=== PATIENT | male | born 1940 | race Caucasian/White ===

== ENCOUNTER → 2017-01-21 | Outpatient (CLI) | payer OTHER ==
[~2017-01-21] MED LIST: ACIPHEX 20 MG T20 MG PO; ACTOS 30 MG TAB30 MG PO; ADULT LOW DOSE81 MG PO; ADVAIR 250-501 EACH IH; ALLOPURINOL 30300 M1 PO; AMARYL2 MG PO; AMBIEN 5 MG TABL5 MG; AMOXICILLIN 50500 MG PO; B-122500 MCG PO; BACTRIM DS TAB1 EACH PO; CARVEDILOL25 MG PO; CINNAMON ALPHA1 EACH PO; CINNAMON PO; COREG PO; COUMADIN 2 MG TA2 M1; COUMADIN 2 MG TA2 M1 PO; COUMADIN 2.5MG2.5 M1 PO; COUMADIN 4 MG TA4 M1 PO; COZAAR 25 MG TA25 M1 PO; COZAAR 50 MG TA50 M1 PO; CRESTOR10 MG PO; EFFEXOR XR75 MG PO; ELAVIL PO; FENOFIBRATE160 MG PO; GABAPENTIN100 MG PO; IBUPROFEN 800800 M1 PO; ICY HOT CREAM35.4 GM; IMDUR 60 MG TAB60 M1 PO; JANUVIA50 MG PO; K-DUR 20 MEQ T20 MEQ PO; KEFLEX500 MG PO; LANTUS SOL100 UNIT/1 SQ; LANTUS SUBQ; LANTUSSOLASTAR SUBQ; LASIX 40 MG TAB40 MG PO; LEVEMIR SUBQ; LEVOXYL100 MCG PO; LEVOXYL75 MCG PO; LIPITOR40 MG PO; LOVAZA1000 MG PO; LYRICA 75 MG CA75 MG PO; MOBIC15 MG PO; MULTIVITAMINS PO; NEUROTIN PO; NEXIUM40 MG PO; NIASPAN ER 101000 M1 PO; NOVOLOG 70-30; NOVOLOG MI100 UNIT/2 SQ; NOVOLOG MI100 UNIT/2 SUBQ; ODORLESS GARLI500 MG PO; OMEPRAZOLE40 MG PO; OS-CAL ULTRA T1 EACH PO; PACERONE 200 M200 M1 PO; PREDNISONE 5 MG5 M1 PO; PROVENTIL HFA6.7 G1 INH; SPIRIVA INH; TRADJENTA5 MG PO; TRICOR PO; TRICOR145 MG PO; VITAMIN B-12100 MC1 PO; VITAMIN D31000 UNI2 PO
[2017-01-21 09:59] LABS: CALCIUM 9.3 mg/dL (8.5-10.1); CREATININE 2.4 mg/dL (0.7-1.3); POTASSIUM 4.4 mmol/L (3.5-5.1)
[2017-01-21 10:04] LABS: ALBUMIN 2.9 g/dL (3.4-5.0); TOTAL BILIRUBIN 0.5 mg/dL (<0.1-1.0); TOTAL PROTEIN 6.6 g/dL (6.4-8.2)
== END ==
LOC: RAD 09:18
DX: N18.9 Chronic kidney disease, unspecified (principal); E03.9 Hypothyroidism, unspecified

== ENCOUNTER → 2017-07-08 | Outpatient (CLI) | payer OTHER | LOC: PET 02:22 | DX: R91.1 Solitary pulmonary nodule (principal); E11.9 Type 2 diabetes mellitus without complications; Z79.4 Long term (current) use of insulin ==

== ENCOUNTER 2017-08-06 08:53 | Inpatient (IN) | payer OTHER ==
[~2017-08-06] VITALS: Ht 185.4 cm; Wt 156.4 kg
--- NOTE | ~2017-08-06 | EKG ---
[address] [address] ELECTROCARDIOGRAM REPORT Name: CHITRA WASSERMAN Room #: 209-P ADM IN M.R.#: [id number] Admission: 08/06/17 Attend Phys: Estelita Newman Discharge: Date of : 42 Report #: [id number] THIS REPORT FOR: //name// [facility] Test Date: 2017-08-08 Test Time: 06:47:20 Pat Name: CHITRA WASSERMAN Department: Room: 209 P Gender: M Vaccinator: LUCIE : 1940 Requested By: Emre Pappas Order Number: [id number] MD: Adalberto Swartz Measurements Intervals [place] Rate: 111 P: 83 [place]: 173 QRS: -74 QRSD: 131 T: 254 QT: 360 QTc: 489 Interpretive Statements Atrial flutter. Nonspecific T abnormalities, lateral leads Electronically Signed On 08-08-2017 15:08:12 [employer]LES[employer] TALEO MANAGER by Adalberto Swartz [email or web address] <ELECTRONICALLY SIGNED> By: Adalberto Swartz MD 08/08/17 1508 0647 0647 Adalberto Swartz MD /JUSTINO
--- NOTE | ~2017-08-06 | EKG ---
[address] [address] ELECTROCARDIOGRAM REPORT Name: CHITRA WASSERMAN Room #: 209-P ADM IN M.R.#: [id number] Admission: 08/06/17 Attend Phys: Estelita Newman Discharge: Date of : 42 Report #: [id number] THIS REPORT FOR: //name// [facility] Test Date: 2017-08-08 Test Time: 09:08:50 Pat Name: CHITRA WASSERMAN Department: Room: 209 P Gender: M Component Engineer: LUCIE : 1940 Requested By: Emre Pappas Order Number: [id number] MD: Adalberto Swartz Measurements Intervals [place] Rate: 72 P: 58 [place]: 170 QRS: -50 QRSD: 123 T: -33 QT: 456 QTc: 500 Interpretive Statements Sinus rhythm Probable left atrial enlargement Compared to ECG 08/07/2017 08:43:43 Electronically Signed On 08-08-2017 15:13:04 LEAN LEADER by Adalberto Swartz [email or web address] <ELECTRONICALLY SIGNED> By: Adalberto Swartz MD 08/08/17 1513 7 7 Adalberto Swartz MD /JUSTINO
--- NOTE | ~2017-08-06 | EKG ---
[place] [address] [facility] [place] [address] ELECTROCARDIOGRAM REPORT Name: CHITRA WASSERMAN Room #: 209-P ADM IN M.R.#: [id number] Admission: 08/06/17 Attend Phys: Estelita Newman Discharge: Date of : 42 Report #: [id number] THIS REPORT FOR: //name// [facility] ED Test Date: 2017-08-06 Test Time: 09:23:07 Pat Name: CHITRA WASSERMAN Department: Room: 209 Gender: M Uniform Attendant: BERNIE : 1940 Requested By: Zahra Mortensen Order Number: [id number] MD: Agustin Franz Measurements Intervals [place] Rate: 72 P: 70 [place]: 157 QRS: -57 QRSD: 125 T: -74 QT: 488 QTc: 535 Interpretive Statements Sinus rhythm Poor R-wave progression Nonspecific IVCD with LAD Nonspecific T abnormalities, diffuse leads Compared to ECG 05/26/2016 07:32:58 No significant change Electronically Signed On 08-06-2017 11:49:54 CDT by Agustin Franz [email or web address] <ELECTRONICALLY SIGNED> By: Agustin Franz MD 08/06/17 1149 2 2 Agustin Franz MD /EPI
--- NOTE | ~2017-08-06 | EKG ---
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 Supervisor: JACKSON : 1940 Requested By: Emre Pappas Order Number: [id number] MD: Sarkis Rodrigez Measurements Intervals [place] Rate: 103 P: [place]: QRS: -62 QRSD: 130 T: 80 QT: 454 QTc: 595 Interpretive Statements Atrial flutter with predominant 2:1 AV block Nonspecific IVCD with LAD Incomplete left bundle-branch block Compared to ECG 08/06/2017 09:23:07 2:1 AV block now present Sinus rhythm no longer present Electronically Signed On 08-07-2017 14:36:28 NEEDLE LOOM OPERATOR by Sarkis Rodrigez [email or web address] <ELECTRONICALLY SIGNED> By: Sarkis Rodrigez MD, [facility] 08/07/17 1436 0843 0843 Sarkis Rodrigez MD, [facility] /EPI
--- NOTE | ~2017-08-06 | EKG ---
[address] [place] [address] ELECTROCARDIOGRAM REPORT Name: CHITRA WASSERMAN Room #: 209-P ADM IN M.R.#: [id number] Admission: 08/06/17 Attend Phys: Estelita Newman Discharge: Date of : 42 Report #: [id number] THIS REPORT FOR: //name// [facility] Test Date: 2017-08-09 Test Time: 06:20:07 Pat Name: CHITRA WASSERMAN Department: Room: 209 P Gender: M General Lithographic Worker: LUCIE : 1940 Requested By: Emre Pappas Order Number: [id number] MD: Sarkis Rodrigez Measurements Intervals [place] Rate: 112 P: 147 [place]: 147 QRS: -71 QRSD: 127 T: 105 QT: 350 QTc: 478 Interpretive Statements Atrial flutter with 2-1 AV conduction RBBB and LAFB Probable anteroseptal infarct, old Nonspecific T abnormalities, lateral leads Compared to ECG 08/08/2017 09:08:50 Left anterior fascicular block now present Right bundle-branch block now present atrial flutter has replaced sinus rhythm Electronically Signed On 08-09-2017 8:07:46 ADVISORY INTERNSHIP by Sarkis Rodrigez [email or web address] <ELECTRONICALLY SIGNED> By: Sarkis Rodrigez MD, FACC 08/09/1707 9 9 Sarkis Rodrigez MD, FAC /EPI
--- NOTE | ~2017-08-06 | 2DMMODE ---
[facility] [address] [place] [address] 2 D/M-MODE ECHOCARDIOGRAM Name: CHITRA WASSERMAN Room #: 209-P ADM IN M.R.#: [id number] Admission: 08/06/17 Attend Phys: Estelita Hernandez Discharge: Date of : 42 Date of Service: 08/08/17 1630 Report #: [id number] THIS REPORT FOR: //name// APPROVED REPORT Study performed: 08/08/2017 14:46:06 EXAM: Comprehensive 2D, Doppler, and color-flow Echocardiogram Patient Location: Bedside Room #: 29 Status: routine BSA: 2.79 BP: 144/78 mmHg Other Information Study Quality: Technically Difficult Technically limited study due to body habitus, inability to position patient. Indications Congestive Heart Failure COPD Diabetes Atrial Fibrillation Dyspnea CAD Echo Enhancing Agent Indication: Endocardial border delineation Agent(s) / Amount(s) Used: Optison 6 cc 2D Dimensions RVDd: 38.05 mm IVSd: 13.92 (7-11mm) LVOT Diam: 21.36 (18-24mm) LVDd: 57.40 mm PWd: 13.63 (7-11mm) Ascending Ao: 32.71 (22-36mm) LVDs: 47.27 (25-40mm) Aortic Root: 37.29 mm IVC: 12.00 mm Volumes Left Atrial Volume (Systole) Single Plane 4CH: 48.14 mL Single Plane 2CH: 66.98 mL LA ESV Index: 23.00 mL/m2 [facility] [place] [address] [address] 2 D/M-MODE ECHOCARDIOGRAM Name: CHITRA WASSERMAN Room #: 209-P ADM IN M.R.#: [id number] Admission: 08/06/17 Attend Phys: Estelita Hernandez Discharge: Date of : 42 Date of Service: 08/08/17 1630 Report #: [id number] Aortic Valve AoV Peak Alexis.: 1.31 m/s AO Peak Gr.: 6.82 mmHg LVOT Max P.91 mmHg LVOT Max V: 0.99 m/s RHIANNON Vmax: 2.71 cm2 Mitral Valve MV Decel. Time: 132.46 ms MV E Max Alexis.: 1.14 m/s IVRT: 96.89 ms Pulmonary Valve PV Peak Alexis.: 1.19 m/s PV Peak Gr.: 5.74 mmHg Tricuspid Valve RAP Estimate: 5.00 mmHg Left Ventricle Left ventricle is mildly dilated. apical hypokinesis noted Mild to moderate concentric left ventricular hypertrophy. Left ventricular systolic function is moderately decreased. LVEF is 40-45%. This study is not technically sufficient to allow evaluation of the LV diastolic function due to atrial flutter. Right Ventricle Right ventricle is dilated. Right ventricle is hypokinetic. Atria The left atrium size is normal. The right atrium size is normal. Aortic Valve The aortic valve is not well visualized. No aortic regurgitation is present. There is no aortic valvular stenosis. Mitral Valve The mitral valve is normal in structure. There is no mitral valve regurgitation noted. No evidence of mitral valve stenosis. Tricuspid Valve The tricuspid valve is normal in structure. There is no tricuspid valve regurgitation noted. Unable to assess PA pressure. Pulmonic Valve Pulmonic valve is not well visualized. There is no pulmonic valvular [facility] [place] [address] 2 D/M-MODE ECHOCARDIOGRAM Name: CHITRA WASSERMAN Room #: 209-P ADM IN M.R.#: [id number] Admission: 08/06/17 Attend Phys: Estelita Hernandez Discharge: Date of : 42 Date of Service: 08/08/171629 Report #: [id number] regurgitation. Great Vessels The aortic root is normal in size. IVC is normal in size and collapses >50% with inspiration. Pericardium There is no pericardial effusion. <Conclusion> Mild to moderate concentric left ventricular hypertrophy. LVEF is 40-45%. apical hypokinesis noted <ELECTRONICALLY SIGNED> By: Emre Pappas MD, [facility] 08/08/171629 29 1630 Emre Pappas MD, FACC /INF
[2017-08-06 08:54] VITALS: BP 133/65
[2017-08-06 10:01] LABS: HEMATOCRIT 41.2 % (42.0-52.0); HEMOGLOBIN 13.9 gm/dL (14.0-18.0); MCH 31.6 pg (26.0-34.0); MCHC 33.7 g/dL (28.0-37.0); MCV 93.7 fL (80.0-100.0); RBC 4.4 mil/uL (4.50-6.00); RDW 15.6 % (10.5-14.5); WBC 7.5 thou/uL (4.0-11.0)
[2017-08-06 10:05] LABS: CALCIUM 8.8 mg/dL (8.5-10.1); CREATININE 1.4 mg/dL (0.7-1.3); POTASSIUM 3.8 mmol/L (3.5-5.1)
[2017-08-06 10:11] LABS: INR 1.7; PROTIME 17.4 Seconds (9.3-11.4)
[2017-08-06 10:15] LABS: ALBUMIN 2.9 g/dL (3.4-5.0); TOTAL BILIRUBIN 1.1 mg/dL (<0.1-1.0); TOTAL PROTEIN 5.9 g/dL (6.4-8.2); TROPONIN-I 0.15 ng/mL (<0.06)
[2017-08-06 11:26] VITALS: BP 146/62
[2017-08-06 11:45] VITALS: BP 118/62
[2017-08-06 12:15] VITALS: BP 153/71
[2017-08-06 16:03] VITALS: BP 156/80
[2017-08-06] MEDS ORDERED: SPIRIVA INH (16:46)
[2017-08-06] MEDS ORDERED: ACCUNEB SO1.25 MG/1 INH (16:47)
[2017-08-06 20:53] VITALS: BP 159/71
[2017-08-07] VITALS (7 sets, daily range): BP systolic 122–177; BP diastolic 63–92
[2017-08-07 01:04] LABS: CALCIUM 8.8 mg/dL (8.5-10.1); CREATININE 1.4 mg/dL (0.7-1.3); POTASSIUM 3.9 mmol/L (3.5-5.1)
[2017-08-07 01:13] LABS: ALBUMIN 2.9 g/dL (3.4-5.0); INR 1.7; PHOSPHORUS 2.7 mg/dL (2.5-4.9); PROTIME 16.8 Seconds (9.3-11.4); TROPONIN-I 0.23 ng/mL (<0.06)
[2017-08-07 04:45] LABS: CALCIUM 8.6 mg/dL (8.5-10.1); CREATININE 1.3 mg/dL (0.7-1.3); MAGNESIUM 1.9 mg/dL (1.8-2.4); POTASSIUM 3.5 mmol/L (3.5-5.1)
[2017-08-08 04:16] VITALS: BP 155/88
[2017-08-08 04:23] LABS: INR 1.9; PROTIME 18.9 Seconds (9.3-11.4)
[2017-08-08 04:27] LABS: CALCIUM 8.7 mg/dL (8.5-10.1); CREATININE 1.4 mg/dL (0.7-1.3); POTASSIUM 4.1 mmol/L (3.5-5.1)
[2017-08-08 09:35] VITALS: BP 139/66
[2017-08-08 11:34] VITALS: BP 144/78
[2017-08-08 17:30] VITALS: BP 148/81
[2017-08-08 20:11] VITALS: BP 176/79
[2017-08-09 03:39] LABS: HEMATOCRIT 43.9 % (42.0-52.0); HEMOGLOBIN 14.6 gm/dL (14.0-18.0); MCH 31.1 pg (26.0-34.0); MCHC 33.3 g/dL (28.0-37.0); MCV 93.3 fL (80.0-100.0); RBC 4.7 mil/uL (4.50-6.00); RDW 15.6 % (10.5-14.5); WBC 10.8 thou/uL (4.0-11.0)
[2017-08-09 03:46] LABS: CALCIUM 8.8 mg/dL (8.5-10.1); CREATININE 1.3 mg/dL (0.7-1.3); POTASSIUM 4.5 mmol/L (3.5-5.1)
[2017-08-09 03:49] VITALS: BP 153/84
[2017-08-09 07:26] VITALS: BP 146/78
[2017-08-09 11:34] VITALS: BP 133/66
[2017-08-09 15:31] VITALS: BP 156/81
[2017-08-09 19:33] VITALS: BP 141/77
[2017-08-10 04:30] VITALS: BP 125/84
[2017-08-10 07:30] VITALS: BP 107/56
[2017-08-10 11:53] VITALS: BP 115/63
[2017-08-10 13:11] LABS: INR 4.4; PROTIME 43.9 Seconds (9.3-11.4)
[2017-08-10 15:21] VITALS: BP 131/73
[2017-08-10 20:04] VITALS: BP 122/78
[2017-08-11] VITALS (7 sets, daily range): BP systolic 124–153; BP diastolic 74–90
[2017-08-11 04:01] LABS: ALBUMIN 2.5 g/dL (3.4-5.0); CALCIUM 9.4 mg/dL (8.5-10.1); CREATININE 1.4 mg/dL (0.7-1.3); PHOSPHORUS 4.7 mg/dL (2.5-4.9); POTASSIUM 5.1 mmol/L (3.5-5.1)
[2017-08-12 03:50] VITALS: BP 116/52
[2017-08-12 06:36] LABS: ALBUMIN 2.8 g/dL (3.4-5.0); CALCIUM 9.7 mg/dL (8.5-10.1); CREATININE 1.6 mg/dL (0.7-1.3); PHOSPHORUS 4.9 mg/dL (2.5-4.9); POTASSIUM 4.4 mmol/L (3.5-5.1)
[2017-08-12 06:37] LABS: PROTIME 46.8 Seconds (9.3-11.4)
[2017-08-12 06:38] LABS: INR 4.7
[2017-08-12 07:52] VITALS: BP 117/64
[2017-08-12] MEDS ORDERED: LEVAQUIN 500 M500 M2 PO (08:35)
[2017-08-12] MEDS ORDERED: COUMADIN 4 MG TA4 M1 PO (08:39)
[2017-08-12] MEDS ORDERED: LOPRESSOR50 PO (08:40)
[2017-08-12] MEDS ORDERED: CARDIZEM CD 18180 M3 PO (08:41)
[2017-08-12 11:55] VITALS: BP 113/87
== END 2017-08-12 14:25 | DRG 871 ==
LOC: ER 08:53 → EROBS 10:48 → 2N 10:48
PROVIDERS: Hospitalist; Internal Medicine Cardiovascular Disease; Nurse Practitioner Family; Physician Assistant
PROC: 5A2204Z Restoration of Cardiac Rhythm, Single (ICD-10-PCS; principal; 2017-08-08)
DX: A41.9 Sepsis, unspecified organism (principal); I50.21 Acute systolic (congestive) heart failure; J18.1 Lobar pneumonia, unspecified organism; I48.92 Unspecified atrial flutter; I42.9 Cardiomyopathy, unspecified; Z68.42 Body mass index [BMI] 45.0-49.9, adult; G47.33 Obstructive sleep apnea (adult) (pediatric); E66.9 Obesity, unspecified; E11.40 Type 2 diabetes mellitus with diabetic neuropathy, unspecified; I48.91 Unspecified atrial fibrillation; E11.9 Type 2 diabetes mellitus without complications; I25.10 Atherosclerotic heart disease of native coronary artery without angina pectoris; J44.9 Chronic obstructive pulmonary disease, unspecified; Z91.14 Patient's other noncompliance with medication regimen; Z95.1 Presence of aortocoronary bypass graft; Z86.718 Personal history of other venous thrombosis and embolism; Z86.711 Personal history of pulmonary embolism; Z90.49 Acquired absence of other specified parts of digestive tract; Z86.73 Personal history of transient ischemic attack (TIA), and cerebral infarction without residual deficits; I25.2 Old myocardial infarction; Z87.891 Personal history of nicotine dependence; Z82.49 Family history of ischemic heart disease and other diseases of the circulatory system; Z83.3 Family history of diabetes mellitus; Z79.899 Other long term (current) drug therapy; Z79.82 Long term (current) use of aspirin
CPT/HCPCS: 10081

== ENCOUNTER 2019-05-08 14:23 | Inpatient (IN) | payer OTHER ==
[~2019-05-08] VITALS: Ht 188 cm; Wt 156.0 kg
--- NOTE | ~2019-05-08 | HC ---
[facility] [place] [address] CONSULTATION Name: CHITRA WASSERMAN Room #: 205-P ADM IN .R.#: [id number] Admission: 05/08/19 Attend Phys: Nicolas Eldridge MD Discharge: Date of : 42 Report #: [id number] THIS REPORT FOR: //name// CC: DA physician/PCP Nicolas Eldridge DATE OF SERVICE: 05/08/2019 ELECTROPHYSIOLOGY CONSULTATION REASON FOR CONSULTATION: VT, status post ICD shock. HISTORY OF PRESENT ILLNESS: The patient is a 78-year-old male with coronary artery disease, atrial fibrillation, atrial flutter, ischemic cardiomyopathy, status post single chamber [employer] ICD implantation in 2007 as well as hyperlipidemia, diabetes, chronic renal insufficiency, prior DVT as well as morbid obesity with a weight of 350 pounds. His bypass was in 1994. His last echo in November showed an EF of around 30% with prior myocardial infarction. Yesterday, the patient had a single ICD shock for VT within the VF zone, rates of 237 beats per minute. This morning, he had a similar episode at around 9:30 in the morning with a variable ventricular morphology at around 240-210 milliseconds. This was also successfully cardioverted. He is in the ER. He denies any chest pain recently. He has been experiencing increased shortness of breath and has increased his oxygen supplementation. He reports increased swelling. He denies PND or orthopnea. He reports that he is pretty sedentary, not very active. REVIEW OF SYSTEMS: A 12-point review of systems was performed and was negative other than what I mentioned above. PAST MEDICAL HISTORY: As above. SOCIAL HISTORY: Quit smoking in 1994. FAMILY HISTORY: Noncontributory. ALLERGIES: None. MEDICATIONS: Reviewed. PHYSICAL EXAMINATION: VITAL SIGNS: Reviewed. GENERAL: No acute distress. HEENT: Oropharynx clear. HEART: Regular rate and rhythm with no murmurs, rubs or gallops. He has positive JVD. [facility] [address] [place] [address] CONSULTATION Name: CHITRA WASSERMAN Room #: [address] [place] [address] [facility].#: [id number] Admission: 05/08/19 Attend Phys: Nicolas Eldridge MD Discharge: Date of : 42 Report #: [id number] LUNGS: Clear to auscultation bilaterally. ABDOMEN: Soft, nontender, nondistended. EXTREMITIES: There is 2 to 3+ lower extremity edema. NEUROLOGIC: Cranial nerves 2 through 12 are intact. LABORATORY DATA: Have been reviewed. CBC is within normal limits. Coags: INR 2.8. Sodium 138, potassium 4.6, BUN 22, creatinine 1.4. Troponin 0.37. TSH 2.1. His 12-lead EKG shows sinus rhythm with occasional premature ventricular contractions and no ischemic changes. His chest x-ray shows some mild cephalization, large cardiac silhouette and a single chamber [employer] defibrillator. ASSESSMENT: 1. Ventricular tachycardia, ventricular fibrillation. 2. Ischemic cardiomyopathy. 3. Coronary artery disease. 4. Elevated troponin. PLAN: The patient will require diagnostic cardiac catheterization to rule out any ischemic causes; however, this is likely the result of his prior myocardial infarctions and scar related VT/VF. I recommend an echocardiogram. We will initiate IV amiodarone at 1 mg per minute continuous infusion. He will need to be discharged on a higher dose of amiodarone, was previously only on 200 mg a day. We will continue to follow. By: 1705 0027 Adalberto Swartz MD /nt
[~2019-05-08 14:23] MED LIST changes: +ACCUNEB SO1.25 MG/1 INH; +CARDIZEM CD 18180 M3 PO; +LEVAQUIN 500 M500 M2 PO; +LOPRESSOR50 PO
[2019-05-08 15:32] LABS: BASOPHILS 1.1 % (0.0-2.0); EOSINOPHILS 1.7 % (0.0-3.0); HEMATOCRIT 44.1 % (42.0-52.0); HEMOGLOBIN 14.9 gm/dL (14.0-18.0); LYMPHOCYTES 15.4 % (24.0-44.0); MCH 31.1 pg (26.0-34.0); MCHC 33.7 g/dL (28.0-37.0); MCV 92.3 fL (80.0-100.0); MONOCYTES 11.2 % (1.0-8.0); PLATELET COUNT 199 thou/uL (150-400); POLYS 70.6 % (36.0-66.0); RBC 4.77 mil/uL (4.50-6.00); RDW 16.6 % (10.5-14.5); WBC 9.9 thou/uL (4.0-11.0)
[2019-05-08 15:41] LABS: CALCIUM 9.4 mg/dL (8.5-10.1); CREATININE 1.4 mg/dL (0.7-1.3); POTASSIUM 4.6 mmol/L (3.5-5.1)
[2019-05-08 15:51] LABS: MAGNESIUM 1.9 mg/dL (1.8-2.4); TROPONIN-I 0.37 ng/mL (<0.06)
[2019-05-08 16:18] LABS: INR 2.8; PROTIME 29.1 Seconds (9.3-11.4)
[2019-05-08 17:04] VITALS: BP 123/54
[2019-05-08 17:30] VITALS: BP 155/66
[2019-05-08 17:47] VITALS: BP 147/92
--- NOTE | 2019-05-08 19:05 | NUR ---
PT CARE ASSUMED APPROX 1730. PT ALERT AND ORIENTED X4. WITH INTERNITTENT CONFUSION. ADMITTED FROM ED AFTER AICD FIRED TWICE AND ER DEVICE INTERROGATION REVEALED VFIB. PT ON AMIO AND ATYPICAL DOSE ENTERED FOR GTT PER JORGE CV OUTSOLE SCHEDULER. PT TOELRATING. VSS. UP WITH ASSIST. COMPLIANT WITH CURRENT POC. DENIES QUESTIONS OR CONCERNS. DENIES PAIN AND SOA. NO DISTRESS NOTED.
[2019-05-08 20:24] VITALS: BP 173/64
[2019-05-08 22:34] VITALS: BP 168/70
[2019-05-09] VITALS (7 sets, daily range): BP systolic 149–156; BP diastolic 67–90
--- NOTE | 2019-05-09 03:01 | NUR ---
ASSUMED CARE AT 1900; PT. ON BED; AOX4; DURING ASSESSMENT NO C/O PAIN; EDUCATED ABOUT FALL PREVENTIONS; ST. UNDERSTANDING; ADMISSION PERFORMED; HS MEDICATION GIVEN; REMAINED OF NPO AFTER MIDNIGHT; ST. UNDERSTANDING; ST. USING 4L O2 AT HOME; MONITORING SBP; HEART RYTHM SR EARLY ON THE NIGHT; HEART RYTHM AFIB AT 0200; MONITORING; ASSESSMENT CHARGED; FOLLOWING POC; WILL PASS ON REPORT.
[2019-05-09 05:37] LABS: HEMATOCRIT 44.6 % (42.0-52.0); HEMOGLOBIN 14.9 gm/dL (14.0-18.0); MCH 30.7 pg (26.0-34.0); MCHC 33.3 g/dL (28.0-37.0); MCV 92.2 fL (80.0-100.0); PLATELET COUNT 209 thou/uL (150-400); RBC 4.84 mil/uL (4.50-6.00); RDW 16.2 % (10.5-14.5); WBC 9.4 thou/uL (4.0-11.0)
[2019-05-09 05:47] LABS: INR 1.7; PROTIME 17.7 Seconds (9.3-11.4)
[2019-05-09 05:54] LABS: ANION GAP 9 mmol/L (7-16); BUN 22 mg/dL (7-18); CALCIUM 9.4 mg/dL (8.5-10.1); CHLORIDE 104 mmol/L (98-107); CHOLESTEROL 131 mg/dL (<200); CO2 31 mmol/L (21-32); CREATININE 1.4 mg/dL (0.7-1.3); GLUCOSE 99 mg/dL (74-106); HDL CHOLESTEROL 50 mg/dL (>40); LDL CHOLESTEROL 59 mg/dL (<100); MAGNESIUM 1.9 mg/dL (1.8-2.4); SODIUM 144 mmol/L (136-145); TC:HDL 2.6 Ratio (Not establshd); TRIGLYCERIDE 112 mg/dL (<150); VLDL 22 mg/dL (<40)
[2019-05-09 06:06] LABS: POTASSIUM 3.4 mmol/L (3.5-5.1); SERUM ASSESSMENT Clear
--- NOTE | 2019-05-09 07:48 | EKG ---
[place] [address] [address] [facility] [place] [address] ELECTROCARDIOGRAM REPORT Name: CHITRA WASSERMAN Room #: 205-P ADM IN M.R.#: [id number] Admission: 05/08/19 Attend Phys: Nicolas Eldridge MD Discharge: Date of : 42 Report #: [id number] THIS REPORT FOR: //name// [facility] ED Test Date: 2019-05-08 Test Time: 14:26:43 Pat Name: CHITRA WASSERMAN Department: Room: 205 Gender: M Dental Office Assistant: MORE : 1940 Requested By: Jimbo Mike Order Number: [id number] MD: Sarkis Rodrigez Measurements Intervals [place] Rate: 67 P: 74 [place]: 212 QRS: -50 QRSD: 126 T: 87 QT: 463 QTc: 489 Interpretive Statements Sinus rhythm Borderline prolonged VA interval Nonspecific intraventricular conduction delay Compared to ECG 08/09/2017 06:20:07 Sinus rhythm has replaced atrial flutter Electronically Signed On 05-09-2019 7:48:43 CDT by Sarkis Rodrigez [email or web address] <ELECTRONICALLY SIGNED> By: Sarkis Rodrigez MD, [facility] 05/09/19 0748 1426 1426 Sarkis Rodrigez MD, [facility] /EPI
[2019-05-09 08:31] LABS: ABSOLUTE NEUTROPHILS 6.5 thou/uL (1.4-8.2); PLATELET ESTIMATE NORMAL
--- NOTE | 2019-05-09 08:47 | EKG ---
[place] [address] [address] [place] [address] ELECTROCARDIOGRAM REPORT Name: CHITRA WASSERMAN Room #: 205-P ADM IN M.R.#: [id number] Admission: 05/08/19 Attend Phys: Nicolas Eldridge MD Discharge: Date of : 42 Report #: [id number] THIS REPORT FOR: //name// [facility] Test Date: 2019-05-09 Test Time: 07:16:27 Pat Name: CHITRA WASSERMAN Department: Room: 205 P Gender: M Supervisor Underwriting Clerks: BERTRAM : 1940 Requested By: Pdamini Lyon Order Number: [id number] MD: Sarkis Rodrigez Measurements Intervals [place] Rate: 90 P: [place]: QRS: -53 QRSD: 135 T: 86 QT: 417 QTc: 511 Interpretive Statements Atrial fibrillation Left bundle branch block Compared to ECG 08/09/2017 06:20:07 Atrial fibrillation is now present Electronically Signed On 05-09-2019 8:47:03 CDT by Sarkis Rodrigez [email or web address] <ELECTRONICALLY SIGNED> By: Sarkis Rodrigez MD, [facility] 05/09/19 0847 5 5 Sarkis Rodrigez MD, [facility] /EPI
--- NOTE | 2019-05-09 12:41 | 2DMMODE ---
[facility] [place] [address] 2 D/M-MODE ECHOCARDIOGRAM Name: CHITRA WASSERMAN Room #: 205-P [facility] IN [facility].#: [id number] Admission: 05/08/19 Attend Phys: Nicolas Eldridge MD Discharge: Date of : 42 Date of Service: 05/09/19 1241 Report #: [id number] THIS REPORT FOR: //name// APPROVED REPORT Study performed: 05/09/2019 11:49:08 EXAM: Comprehensive 2D, Doppler, and color-flow Echocardiogram Patient Location: Bedside Status: routine BSA: 2.72 HR: 90 bpm BP: 149/90 mmHg Rhythm: Atrial Fibrillation Other Information Study Quality: Adequate Technically limited study due to morbid obesity, unable to roll. Indications V-fib, AICD shock. Hx: ISCM, CABG, AICD, HTN, HLP. 2D Dimensions RVDd: 45.67 mm IVSd: 11.07 (7-11mm) LVOT Diam: 23.76 (18-24mm) LVDd: 60.00 mm PWd: 10.57 (7-11mm) Ascending Ao: 35.24 (22-36mm) LVDs: 49.37 (25-40mm) Aortic Root: 39.81 mm Volumes Left Atrial Volume (Systole) Single Plane 4CH: 105.22 mL Single Plane 2CH: 143.45 mL LA ESV Index: 49.00 mL/m2 Aortic Valve AoV Peak Alexis.: 1.44 m/s AO Peak Gr.: 8.27 mmHg LVOT Max P.70 mmHg LVOT Max V: 0.82 m/s RHIANNON Vmax: 2.52 cm2 Mitral Valve MV Decel. Time: 174.00 ms [facility] [employer] [address] [place] [address] 2 D/M-MODE ECHOCARDIOGRAM Name: CHITRA WASSERMAN Room #: [facility] IN ..#: [id number] Admission: 05/08/19 Attend Phys: Nicolas Eldridge MD Discharge: Date of : 42 Date of Service: 05/09/19 1241 Report #: [id number] E Max Alexis.: 0.96 m/s Pulmonary Valve PV Peak Alexis.: 0.96 m/s PV Peak Gr.: 3.77 mmHg Tricuspid Valve TR Peak Alexis.: 2.08 m/s RAP Estimate: 5.00 mmHg TR Peak Gr.: 17.27 mmHg PA Pressure: 22.00 mmHg Left Ventricle Left ventricle is mildly dilated. There is global hypokinesis of the left ventricle. There is normal left ventricular wall thickness. Left ventricular systolic function is moderately decreased. LVEF is 35-40%. This study is not technically sufficient to allow evaluation of the LV diastolic function due to atrial fibrillation. Right Ventricle Right ventricle is mildly dilated. The right ventricular systolic function is normal. Device lead is present in the right ventricle. Atria Left atrium is dilated. Right atrium is dilated. Aortic Valve Aortic valve is probably trileaflet, mildly calcified. No aortic regurgitation is present. There is no aortic valvular stenosis. Mitral Valve The mitral valve is normal in structure. Trace mitral regurgitation. Tricuspid Valve The tricuspid valve is normal in structure. Trace tricuspid regurgitation. Estimated PAP is 20-25mmHg. Pulmonic Valve The pulmonary valve is normal in structure. Trace pulmonic regurgitation. Great Vessels Aortic root is mildly dilated. The ascending aorta is normal in size. IVC is normal in size and collapses >50% with inspiration. [facility] [address] [place] [address] 2 D/M-MODE ECHOCARDIOGRAM Name: CHITRA WASSERMAN Room #: [address] [place] [address] [place] [facility].#: [id number] Admission: 05/08/19 Attend Phys: Nicolas Eldridge MD Discharge: Date of : 42 Date of Service: 05/09/19 1241 Report #: [id number] Pericardium There is no pericardial effusion. <Conclusion> Left ventricle is mildly dilated. LVEF is 35-40%. There is global hypokinesis of the left ventricle. Right ventricle is mildly dilated. The right ventricular systolic function is normal. Device lead is present in the right ventricle. Left atrium is dilated. Right atrium is dilated. Aortic valve is probably trileaflet, mildly calcified. The mitral valve is normal in structure. Trace mitral regurgitation. The tricuspid valve is normal in structure. Trace tricuspid regurgitation. Estimated PAP is 20-25mmHg. The pulmonary valve is normal in structure. Trace pulmonic regurgitation. Aortic root is mildly dilated. There is no pericardial effusion. <ELECTRONICALLY SIGNED> By: Arnel Fountain MD 05/09/19 1241 124 124 Arnel Fountain MD /INF
[2019-05-09] MEDS ORDERED: ARTIFICIAL TEAR15 ML OPHTHALMIC (14:12)
--- NOTE | 2019-05-09 19:33 | NUR ---
ASSUMED PATIENT CARE AT 0700. A/O X4. ON 3L/NC. NO CHEST PAIN. AFIB ON MONITOR. WILL NPO AFTER MIDNIGHT. SLOWLY TOWARDS POC GOALS.
[2019-05-10] VITALS (7 sets, daily range): BP systolic 133–154; BP diastolic 70–85
[2019-05-10 05:15] LABS: HEMATOCRIT 45.8 % (42.0-52.0); HEMOGLOBIN 15.4 gm/dL (14.0-18.0); MCH 31.4 pg (26.0-34.0); MCHC 33.7 g/dL (28.0-37.0); MCV 93.2 fL (80.0-100.0); RBC 4.91 mil/uL (4.50-6.00); RDW 16.6 % (10.5-14.5); WBC 8.5 thou/uL (4.0-11.0)
[2019-05-10 05:25] LABS: INR 1.2; PROTIME 12.4 Seconds (9.3-11.4)
[2019-05-10 05:34] LABS: CALCIUM 9.4 mg/dL (8.5-10.1); CREATININE 1.5 mg/dL (0.7-1.3); POTASSIUM 3.8 mmol/L (3.5-5.1)
--- NOTE | 2019-05-10 07:52 | NUR ---
RECEIVED PT'S CARE AT 1910; PT. ON BED; AOX4; DURING ASSESSMENT NO C/O PAIN; VS WNL; HS MEDICATION GIVEN; REMAINED NPO AFTER MIDNIGHT; ST. UNDERSTANDING; EDUCATED ABOUT FALL PREVENTION; ST. UNDERSTANDING; ABLE TO REST THROUGH THE NIGHT WITH EYES CLOSED; EARLY ON THE MORNING CHLOROXIDENE BED BATH GIVEN; ASSESSMENT CHARGED; FOLLOWING POC; PASSED ON REPORT.
--- NOTE | 2019-05-10 08:27 | EKG ---
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: BERTRAM : 1940 Requested By: Padmini Lyon Order Number: [id number] MD: Sarkis Rodrigez Measurements Intervals [place] Rate: 76 P: [place]: QRS: -55 QRSD: 132 T: 118 QT: 415 QTc: 467 Interpretive Statements Atrial fibrillation Ventricular premature complex Left bundle branch block Compared to ECG 05/09/2019 07:16:27 Ventricular premature complex(es) now present Electronically Signed On 05-10-2019 8:27:29 CDT by Sarkis Rodrigez [email or web address] <ELECTRONICALLY SIGNED> By: Sarkis Rodrigez MD, [facility] 05/10/19826 5 5 Sarkis Rodrigez MD, [facility] /EPI
--- NOTE | 2019-05-10 20:21 | NUR ---
PATIENT ALERT AND ORIENTED AND COMPLETED CARDIAC CATH WITH NO INTERVENTION. HEMASTASIS AT 1350 AND BEDREST UNTIL 1800. PATIENT COMPLIANT WITH NO COMPLICATIONS.
[2019-05-11] VITALS (7 sets, daily range): BP systolic 143–153; BP diastolic 64–83
[2019-05-11 05:25] LABS: INR 1.1; PROTIME 11.4 Seconds (9.3-11.4)
[2019-05-11 05:28] LABS: CALCIUM 9.7 mg/dL (8.5-10.1); CREATININE 1.5 mg/dL (0.7-1.3); POTASSIUM 3.9 mmol/L (3.5-5.1)
--- NOTE | 2019-05-11 06:48 | NUR ---
ASSUMED CARED ABOUT 1936; PT. ON BED; AOX4; NO C/O PAIN; NO HEMATOMA OVER R. GROIN AREA; DURING ASSESSMENT NO C/O PAIN; R. GROIN AREA DRY; INTACT; NO C/O PAIN; EDUCATED ABOUT CALLING IMMEDIATELY IF SUDDEN PAIN PRESENTS; ST. UNDERSTANDING; MEDICATION GIVEN; REFUSED SCDs; NO HEMATOMA OVER R. GROIN AREA THROUGH THE NIGHT; PULSES PRESENT; ABLE TO REST THROUGH THE NIGHT WITH EYES CLOSED; ASSESSMENT CHARGED; FOLLOWING POC; MONITORING; WILL PASS ON REPORT.
--- NOTE | 2019-05-11 13:43 | EKG ---
[place] [address] [facility] [employer] [address] ELECTROCARDIOGRAM REPORT Name: CHITRA WASSERMAN Room #: 205-P ADM IN M.R.#: [id number] Admission: 05/08/19 Attend Phys: Nicolas Eldridge MD Discharge: Date of : 42 Report #: [id number] THIS REPORT FOR: //name// [facility] Test Date: 2019-05-11 Test Time: 07:13:34 Pat Name: CHITRA WASSERMAN Department: Room: 205 P Gender: M Professional Engineer: samuel : 1940 Requested By: Padmini Lyon Order Number: [id number] MD: Agustin Franz Measurements Intervals [place] Rate: 87 P: [place]: QRS: -60 QRSD: 136 T: 124 QT: 341 QTc: 411 Interpretive Statements Atrial fibrillation Left bundle branch block Baseline wander in lead(s) V2 Compared to ECG 05/10/2019 07:06:45 Ventricular premature complex(es) no longer present Electronically Signed On 05-11-2019 13:43:28 CDT by Agustin Franz [email or web address] <ELECTRONICALLY SIGNED> By: Agustin Franz MD 05/11/19 1343 2 2 Agustin Franz MD /JUSTINO
--- NOTE | 2019-05-11 16:44 | NUR ---
Case opened to follow for dc planning. Pt is a&ox4 and indicates that he lives at [facility] with his spouse. He has home o2 per [place] and an [employer] system as well as a power chair. He can transfer and walk short distances. He has had hh with [facility] in the past and would like to use them again. PT evaluated pt this afternoon. HH f/u recommended for nursing and therapy. Referral faxed to [facility]. If pt is dc'd tomorrow, unit staff to fax dc summary and orders to [phone] and notify their oncall nurse [phone]. Care team updated.
--- NOTE | 2019-05-11 17:05 | NUR ---
ASSUMED CARE AT 0700, SHIFT ASSESSMENT DONE, MEDS GIVEN, VSS. DENIES PAIN, NAUSEA, VOMITING. CARDIAC CATH SITE CLEAN, DRY, INTACT, NO HEMATOMA NOTED. PT DOES NOT WANT BED ALARM ON, WANTS TO SIT AT THE EDGE OF THE BED FROM TIME TO TIME. ACHS, LOW DOSE, COVERAGE NEEDED. ON 3L NC, BIPAP AT NIGHT. WILL CONTINUE TO ASSESS AND ASSIST WITH ADLs NEEDED.
--- NOTE | 2019-05-11 17:11 | NUR ---
FAXED REFERRAL TO A [facility] SPOKE WITH MONA IN ADM SHE RECEIVED REFERRAL AND WILL REVIEW. ANTICIPATE DC TOMORROW 05/12.
--- NOTE | 2019-05-12 04:11 | NUR ---
Pt. rested quietly during the night when checked on during frequent rounds. He offers no c/o pain. Pt. does refuse his bed alarm. Right groin site dressing is dry and intact. No c/o shortness of air.
[2019-05-12 05:10] VITALS: BP 142/65
[2019-05-12 05:19] LABS: INR 1.1
[2019-05-12 05:23] LABS: CALCIUM 9.1 mg/dL (8.5-10.1); CREATININE 1.6 mg/dL (0.7-1.3)
[2019-05-12 08:45] VITALS: BP 130/65
--- NOTE | 2019-05-12 10:59 | EKG ---
[address] [place] [address] ELECTROCARDIOGRAM REPORT Name: CHITRA WASSERMAN Room #: 205-P ADM IN M.R.#: [id number] Admission: 05/08/19 Attend Phys: Nicolas Eldridge MD Discharge: Date of : 42 Report #: [id number] THIS REPORT FOR: //name// [facility] Test Date: 2019-05-12 Test Time: 07:00:12 Pat Name: CHITRA WASSERMAN Department: Room: 205 P Gender: M Dobie Man: Ryan HAMMER : 1940 Requested By: Padmini Lyon Order Number: [id number] MD: Agustin rFanz Measurements Intervals [place] Rate: 83 P: MS: QRS: -54 QRSD: 139 T: 99 QT: 406 QTc: 477 Interpretive Statements Atrial fibrillation Nonspecific IVCD with LAD LVH with secondary repolarization abnormality Compared to ECG 05/11/2019 07:13:34 Intraventricular conduction delay now present Left ventricular hypertrophy now present Early repolarization now present Left bundle-branch block no longer present Electronically Signed On 05-12-2019 10:58:44 CDT by Agustin Franz [email or web address] <ELECTRONICALLY SIGNED> By: Agustin Franz MD 05/12/19 1058 9 Agustin Franz MD /EPI
[2019-05-12] MEDS ORDERED: ALDACTONE50 MG PO (12:28)
[2019-05-12] MEDS ORDERED: DEMADEX20 MG PO (12:28)
[2019-05-12] MEDS ORDERED: CARVEDILOL25 MG PO (12:28)
[2019-05-12] MEDS ORDERED: PACERONE 200 M200 M1 PO (12:28)
[2019-05-12] MEDS ORDERED: NORCO 5-325 TA1 EAC1 PO (12:29)
[2019-05-12 13:45] VITALS: BP 152/83
[2019-05-12 13:50] VITALS: BP 124/47
--- NOTE | 2019-05-12 18:07 | NUR ---
DISCHARGE ORDER RECEIVED, PERIPHERAL IV WAS TAKEN OUT. DISCHARGE PAPER WORK AND NEW SCRIPTS GIVEN. [facility] CALLED [facility] TIMES, NO ONE PICKED UP. DISCHARGE ORDER AND MEDICATIONS FAXED TO A.
--- NOTE | 2019-05-15 17:10 | CATHLAB ---
[facility] [address] [employer] [address] INVASIVE PROCEDURE REPORT Name: CHITRA WASSERMAN Room #: 205-P [facility]#: [id number] Admission: 05/08/19 Attend Phys: Nicolas Eldridge MD Discharge: 05/12/19 Date of : 42 Date of Service: 05/15/19 1709 Report #: [id number] THIS REPORT FOR: //name// APPROVED REPORT Study performed: 05/10/2019 12:15:03 Patient Details The patient is a 78 year-old male Event Personnel Isaias Morin Pals Nurse, Juan C Pacheco RN RN, Alessio Way RTR Scrub, Irene Espinoza RTR Scrub, Alice Segovia RTR, HEATER INSTALLER Monitor, Glenda Gillespie RTR Monitor Procedures Performed Right Heart Catheterization, Left Heart Catheterization Indication Chest pain Procedure Narrative The Right Groin^ was infiltrated with 1% Lidocaine subcutaneous anesthesia. A Right Heart Catheterization was performed with a 7 Fr. Maxwelton-Samm catheter and pressure were recorded. Cardiac outputs were obtained by the Thermal Dilution method. A PINNACLE 6FR Sheath #[id number] sheath was inserted into the RFA^. Coronary angiography was performed using coronary diagnostic catheters. The right coronary system was accessed and visualized with a JR4 catheter. The left coronary system was accessed and visualized with a JL4 catheter. The left ventricle was accessed and visualized with a PIGTAIL catheter. Left ventriculogram was performed in BEAVERS projection. The patient tolerated the procedure well and there were no complications associated with the procedure. Intraoperative Conscious Sedation Sedation start time: 1307 Case end Time: 1347 Fentanyl 50 mcg Versed 1 mg Fluoro Time: 8.43 minutes Dose: DAP 72640.30 cGycm2 1367 mGy Contrast Type and Amount: Omnipaque 120 ml [facility] [place] [address] INVASIVE PROCEDURE REPORT Name: LISYCHITRA Room #: 205-P [facility].#: [id number] Admission: 05/08/19 Attend Phys: Nicolas Eldridge MD Discharge: 05/12/19 Date of : 42 Date of Service: 05/15/19 1709 Report #: [id number] Hemodynamics The right atrial mean pressure is 22 mmHg. The right ventricular pressure is 38/6 mmHg. The pulmonary artery pressure is 45/26 mmHg with a mean of 34 mmHg. The mean pulmonary capillary wedge pressure is 17 mmHg. The cardiac output using thermo method is 4.30 L/min. The cardiac index using thermo method is 2.20 L/min/m2. Conclusion #1 successful right heart catheterization with cardiac output by thermodilution see above hemodynamics #2 normal left ventricular size with moderate LV dysfunction severe hypokinesis of the inferior wall. EF 35-40% with also anterior apical hypokinesis #3 left main moderately disease giving rise to an occluded LAD and circumflex #4 the ARREOLA to LAD is intact this LAD extends to the apex the ARREOLA is widely patent 30% anastomotic lesion #5 large dominant moderately ectatic right coronary artery with an eccentric calcified mid vessel lesion of 60-70% diffuse disease distally will follow #6 SVG to probable OM occluded #7 there is a ramus branch stents mild disease diseased possibly prior bypass to that and a circumflex OM which is mildly disease a remain patent through the [place] system Recommendations plan: Continue aggressive risk factor modification. Transfer back to CCU for aggressive diuresis. Patient will follow-up with his primary legal office administrator Dr. Valadez in outpatient setting after discharge. <ELECTRONICALLY SIGNED> By: Isaias Morin MD, FACC 05/15/191708 08 08 Isaias Morin MD, FACC /INF
== END 2019-05-12 14:28 | disposition home health service (06) | DRG 308 ==
LOC: ER 14:23 → EROBS 16:18 → 2N 16:18
PROVIDERS: Emergency Medicine; Nurse Practitioner; Nurse Practitioner Adult Health; ADMIT Hospitalist
PROC: 5A09357 Assistance with Respiratory Ventilation, Less than 24 Consecutive Hours, Continuous Positive Airway Pressure (ICD-10-PCS; principal; 2019-05-08)
PROC: 4B02XSZ Measurement of Cardiac Pacemaker, External Approach (ICD-10-PCS; principal; 2019-05-08)
PROC: 5A09357 Assistance with Respiratory Ventilation, Less than 24 Consecutive Hours, Continuous Positive Airway Pressure (ICD-10-PCS; 2019-05-09)
PROC: 5A09357 Assistance with Respiratory Ventilation, Less than 24 Consecutive Hours, Continuous Positive Airway Pressure (ICD-10-PCS; 2019-05-10)
PROC: 5A09357 Assistance with Respiratory Ventilation, Less than 24 Consecutive Hours, Continuous Positive Airway Pressure (ICD-10-PCS; 2019-05-11)
DX: I49.01 Ventricular fibrillation (principal); I50.23 Acute on chronic systolic (congestive) heart failure; N17.9 Acute kidney failure, unspecified; D68.59 Other primary thrombophilia; Z68.41 Body mass index [BMI] 40.0-44.9, adult; I13.0 Hypertensive heart and chronic kidney disease with heart failure and stage 1 through stage 4 chronic kidney disease, or unspecified chronic kidney disease; I47.2 Ventricular tachycardia; J44.9 Chronic obstructive pulmonary disease, unspecified; I25.10 Atherosclerotic heart disease of native coronary artery without angina pectoris; E11.40 Type 2 diabetes mellitus with diabetic neuropathy, unspecified; I48.91 Unspecified atrial fibrillation; I25.5 Ischemic cardiomyopathy; E78.5 Hyperlipidemia, unspecified; E11.22 Type 2 diabetes mellitus with diabetic chronic kidney disease; N18.9 Chronic kidney disease, unspecified; E66.01 Morbid (severe) obesity due to excess calories; G47.33 Obstructive sleep apnea (adult) (pediatric); E11.42 Type 2 diabetes mellitus with diabetic polyneuropathy; E03.9 Hypothyroidism, unspecified; E78.00 Pure hypercholesterolemia, unspecified; E87.6 Hypokalemia; R60.0 Localized edema; Z86.718 Personal history of other venous thrombosis and embolism; Z86.711 Personal history of pulmonary embolism; Z90.49 Acquired absence of other specified parts of digestive tract; Z95.1 Presence of aortocoronary bypass graft; I25.2 Old myocardial infarction; Z87.891 Personal history of nicotine dependence; Z86.73 Personal history of transient ischemic attack (TIA), and cerebral infarction without residual deficits; Z82.49 Family history of ischemic heart disease and other diseases of the circulatory system; Z83.3 Family history of diabetes mellitus; Z99.81 Dependence on supplemental oxygen; Z79.82 Long term (current) use of aspirin; Z79.899 Other long term (current) drug therapy; Z95.5 Presence of coronary angioplasty implant and graft; Z95.810 Presence of automatic (implantable) cardiac defibrillator; Z95.828 Presence of other vascular implants and grafts
CPT/HCPCS: 10081; 10194

== ENCOUNTER 2019-06-07 02:14 | Emergency (ER) | payer OTHER ==
[~2019-06-07] VITALS: Ht 188 cm; Wt 152.0 kg
[~2019-06-07 02:14] MED LIST changes: +ALDACTONE50 MG PO; +ARTIFICIAL TEAR15 ML OPHTHALMIC; +DEMADEX20 MG PO; +NORCO 5-325 TA1 EAC1 PO
[2019-06-07 02:48] LABS: ABSOLUTE NEUTROPHILS 5.3 thou/uL (1.4-8.2); BASOPHILS 1.1 % (0.0-2.0); EOSINOPHILS 3.2 % (0.0-3.0); HEMATOCRIT 45.1 % (42.0-52.0); HEMOGLOBIN 14.8 gm/dL (14.0-18.0); LYMPHOCYTES 26.3 % (24.0-44.0); MCH 30.8 pg (26.0-34.0); MCHC 32.8 g/dL (28.0-37.0); MCV 93.8 fL (80.0-100.0); MONOCYTES 11.6 % (1.0-8.0); PLATELET COUNT 131 thou/uL (150-400); POLYS 57.8 % (36.0-66.0); RBC 4.81 mil/uL (4.50-6.00); RDW 16.8 % (10.5-14.5); WBC 9.2 thou/uL (4.0-11.0)
[2019-06-07 02:58] LABS: ANION GAP 12 mmol/L (7-16); BUN 44 mg/dL (7-18); CALCIUM 9.1 mg/dL (8.5-10.1); CHLORIDE 103 mmol/L (98-107); CO2 25 mmol/L (21-32); CREATININE 1.8 mg/dL (0.7-1.3); GLUCOSE 101 mg/dL (74-106); POTASSIUM 4.6 mmol/L (3.5-5.1); SODIUM 140 mmol/L (136-145)
[2019-06-07 03:08] LABS: ALBUMIN 3.2 g/dL (3.4-5.0); INR 2.4; PROTIME 24.8 Seconds (9.3-11.4); SGOT 54 U/L (15-37); SGPT 53 U/L (30-65); TOTAL BILIRUBIN 0.6 mg/dL (<0.1-1.0); TROPONIN-I <0.06 ng/mL (<0.06)
[2019-06-07 04:40] VITALS: BP 126/67
--- NOTE | 2019-06-07 08:33 | EKG ---
[place] [address] [facility] [place] [address] ELECTROCARDIOGRAM REPORT Name: CHITRA WASSERMAN [id number] Admission: 06/07/19 Attend Phys: Discharge: 06/07/19 Date of : 42 Report #: [id number] THIS REPORT FOR: //name// 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
== END 2019-06-07 04:50 | disposition home or self-care (01) ==
LOC: ER 02:14
PROVIDERS: Student in an Organized Health Care Education/Training Program
DX: F10.129 Alcohol abuse with intoxication, unspecified (principal); I50.9 Heart failure, unspecified; J44.9 Chronic obstructive pulmonary disease, unspecified; I25.10 Atherosclerotic heart disease of native coronary artery without angina pectoris; E11.9 Type 2 diabetes mellitus without complications; G47.30 Sleep apnea, unspecified; I48.91 Unspecified atrial fibrillation; Z90.49 Acquired absence of other specified parts of digestive tract; Z86.718 Personal history of other venous thrombosis and embolism; Z86.73 Personal history of transient ischemic attack (TIA), and cerebral infarction without residual deficits; Z87.891 Personal history of nicotine dependence; Z95.0 Presence of cardiac pacemaker; Z79.4 Long term (current) use of insulin; W06.XXXA Fall from bed, initial encounter; Y92.89 Other specified places as the place of occurrence of the external cause; Y93.89 Activity, other specified; Y99.8 Other external cause status; Y90.0 Blood alcohol level of less than 20 mg/100 ml

== ENCOUNTER → 2019-08-16 | Outpatient (CLI) | payer OTHER ==
[~2019-08-16] MED LIST changes: +AMIODARONE HCL400 MG PO; +COUMADIN 3 MG TA3 M1 PO; +DIGITEK125 MC1 PO; +ODORLESS GARL1250 MG PO; -ODORLESS GARLI500 MG PO; +STIOLTO RESPIMAT4 GM
== END ==
LOC: RAD 12:12
DX: R91.1 Solitary pulmonary nodule (principal); Z98.890 Other specified postprocedural states; Z95.810 Presence of automatic (implantable) cardiac defibrillator

== ENCOUNTER 2019-12-04 20:03 | Emergency (ER) | payer OTHER ==
[~2019-12-04] VITALS: Ht 188 cm; Wt 152.4 kg
--- NOTE | ~2019-12-04 | EMS ---
[address] [address] EMS Patient Care Report Name: CHITRA WASSERMAN Room #: REG MAGAN Rosario#: [id number] Admission: 12/04/19 Attend Phys: Discharge: Date of : 42 Report #: [id number] THIS REPORT FOR: //name// Report Transmitted: 12/04/2019 21:47 EMS Care Summary [facility] [id number] @ 12/04/2019 19:15 Incident [address] [place] [address] Patient CHITRA WASSERMAN Male, 79 Years 1940 Patient Address [address] [place] [address] Patient History Congestive Heart Failure (CHF),Coronary Artery Bypass Graft (CABG),Type 2 Diabetes, Patient Allergies No known allergies, Patient Medications Gabapentin, Lipitor, Levothyroxine, Insulin, Amiodarone, Allopurinol, Albuterol, Carvedilol, Spironolactone, Effexor, Tradjenta, Digoxin, Pantoprazole, Coumadin, Chief Complaint Left side pain Disposition Transported No Lights/[place] Dispatch Reason Chest Pain (Non-Traumatic) Transported To [address] [address] EMS Patient Care Report Name: CHITRA WASSERMAN Room #: REG MAGAN Rosario#: [id number] Admission: 12/04/19 Attend Phys: Discharge: Date of : 42 Report #: [id number] Narrative Squad 52 responded to a call regarding chest pain. Upon arrival, the pt reports that he has been having pain that originates under his left arm and radiates to his chest for approximately 2 days. The pt states that the pt is constant except for when he moves, the pain lessens. The pt states that the pain feels like a pulled muscle. The pt denies any abnormal activity leading up the pain starting. The pt states that he has an extensive cardiac history and is concerned because the pain has persisted for two days with no relief. The pt rates the pain at a 2/10. The pt denies injury, SOA, CHILDS, n/v, weakness, dizziness, numbness, tingling or any other additional complaints. Upon arrival we found the pt sitting upright in a chair, appearing atraumatic, A/Ox4. The pt does not appear to be in distress. The airway is patent and self-maintained. Breathing is non-labored at a regular rate, rhythm and depth. Radial pulses are strong and regular. Neck is absent of JVD or tracheal deviation. Chest rises and falls symmetrically. Lung sounds are clear and equal bilaterally. Abdomen is soft and non-tender. Pelvis is intact to stress. Posterior is unremarkable. Extremities have PMS x4. Skin is warm, pink and dry. No neuro deficits noted. Upon arrival, we performed initial assessment and focused history, 12 lead ECG (Atrial fibrillation), assisted ambulatory pt to cot and loaded into ambulance. Continued ongoing assessment. Attempted IV x 1 and failed. Transported to [facility] ED per pt request. Arrived at destination and transferred care to ED staff. Initial Vitals @19:29MI Suspected: false @19:40P: 54,BP: 122/100,Pain: 2/10,GCS: 15,SpO2: 97, @19:27P: 102,R: 18,BP: 160/80,Pain: 2/10,GCS: 15,SpO2: 92,Revised Trauma: 12, Assessments @19:27MENTAL:No Abnormalities,SKIN:No Abnormalities,HEENT:Head/Face: No Abnormalities,Eyes: No Abnormalities,Neck/Airway: No Abnormalities,LUNG SOUNDS:General: No Abnormalities,Left Upper: No Abnormalities,Right Upper: No Abnormalities,Left Lower: No Abnormalities,Right Lower: No Abnormalities,ABDOMEN:General: No Abnormalities,Left Upper: No Abnormalities,Right Upper: No Abnormalities,Left Lower: No Abnormalities,Right Lower: No Abnormalities,PELVIS//GI:No Abnormalities,EXTREMITIES:Left Arm: No Abnormalities,Right Arm: No Abnormalities,Left Leg: No Abnormalities,Right Leg: No Abnormalities,PULSE:NEURO:No Abnormalities, Impression Chest Pain, Other (Non-Cardiac) Procedures [facility] [address] [place] [address] EMS Patient Care Report Name: HARVINDERMYKECHITRA Room #: REG Marlene#: [id number] Admission: 12/04/19 Attend Phys: Discharge: Date of : 42 Report #: [id number] @19:27ALS AssessmentResponse: UnchangedSucceeded Timeline 19:15,Call Received 19:15,Psap Call 19:15,Dispatched 19:17,En Route 19:19,Initial Responder On Scene 19:19,On Scene 19:21,At Patient 19:27,ALS Assessment,Response: UnchangedSucceeded, 19:27,BP: 160/80 M,PULSE: 102,RR: 18 R,SPO2: 92 Ox,ETCO2: ,BG: ,PAIN: 2,GCS: 15, 19:29,BP: / M,PULSE: ,RR: R,SPO2: Ox,ETCO2: ,BG: ,PAIN: ,GCS: , 19:39,Depart Scene 19:40,BP: 122/100 M,PULSE: 54,RR: R,SPO2: 97 Ox,ETCO2: ,BG: ,PAIN: 2,GCS: 15, 19:59,At Destination 20:20,Call Closed Disclaimer v1.1 Copyright 2020 [employer] This EMS Care Summary contains data elements from the applicable legal record (which may be displayed differently). It is designed to provide pertinent information for the following purposes: continuity of care, clinical quality, and state data reporting. The complete legal record is available to ED staff and administrators of the receiving hospital in [employer] Patient Tracker. All data is provided "as is."
[2019-12-04] MEDS ORDERED: LIPITOR40 MG PO (20:19)
[2019-12-04] MEDS ORDERED: LOVASA PO (20:20)
[2019-12-04] MEDS ORDERED: PANTOPRAZOLE SO40 M1 PO (20:22)
[2019-12-04] MEDS ORDERED: TRADJENTA5 MG (20:23)
[2019-12-04] MEDS ORDERED: FLONASE 0.05%50 MCG NARES (20:24)
[2019-12-04] MEDS ORDERED: ARTIFICIAL TEAR1510 OPHTHALMIC (20:25)
[2019-12-04] MEDS ORDERED: HAWTHORN BERRY500 MG PO (20:28)
[2019-12-04 20:52] LABS: HEMATOCRIT 45.1 % (42.0-52.0); HEMOGLOBIN 14.9 gm/dL (14.0-18.0); MCH 32.6 pg (26.0-34.0); MCV 98.8 fL (80.0-100.0); PLATELET COUNT 166 thou/uL (150-400); RBC 4.57 mil/uL (4.50-6.00); RDW 16.2 % (10.5-14.5); WBC 7.7 thou/uL (4.0-11.0)
[2019-12-04 20:56] LABS: ANION GAP 8 mmol/L (7-16); BUN 48 mg/dL (7-18); CALCIUM 9.3 mg/dL (8.5-10.1); CHLORIDE 102 mmol/L (98-107); CO2 31 mmol/L (21-32); GLUCOSE 147 mg/dL (74-106); POTASSIUM 4.2 mmol/L (3.5-5.1); SODIUM 141 mmol/L (136-145)
[2019-12-04 21:03] LABS: APTT 35.2 Seconds (24.5-32.8); INR 2.4
[2019-12-04 21:04] LABS: DIGOXIN 1.2 ng/mL (0.9-2.0); TROPONIN-I <0.06 ng/mL (<0.06)
[2019-12-04] MEDS ORDERED: NOVOLOG FL100 UNIT/M SUBQ (21:32)
[2019-12-04 21:41] LABS: ABSOLUTE NEUTROPHILS 4.6 thou/uL (1.4-8.2); ANISOCYTOSIS 1+; LARGE PLATELETS FEW; PLATELET ESTIMATE NORMAL; POIKILOCYTOSIS 1+
[2019-12-04] MEDS ORDERED: DOXYCYCLINE 10100 MG PO (23:26)
[2019-12-04 23:37] VITALS: BP 161/71
--- NOTE | 2019-12-05 08:18 | EKG ---
[facility] [place] [address] ELECTROCARDIOGRAM REPORT Name: CHITRA WASSERMAN [facility] [id number] Admission: 12/04/19 Attend Phys: Discharge: 12/04/19 Date of : 42 Report #: [id number] THIS REPORT FOR: cc: Jeromy Doyle MD, Austin T. 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: NO : 1940 Requested By: Jihan Boss Order Number: [id number] MD: Sarkis Rodrigez Measurements Intervals [place] Rate: 60 P: -21 AR: 64 QRS: -47 QRSD: 136 T: 164 QT: 394 QTc: 394 Interpretive Statements Ventricular-paced complexes No further rhythm analysis attempted due to paced rhythm Baseline wander in lead(s) V2 Compared to ECG 06/07/2019 02:39:44 Ventricular pacing is now present Electronically Signed On 12-05-2019 8:17:32 CIGAR MACHINE FEEDER by Sarkis Rodrigez [email or web address] <ELECTRONICALLY SIGNED> By: Sarkis Rodrigez MD, [facility] 12/05/19 0817 06 06 Sarkis Rodrigez MD, [facility] /EPI
== END 2019-12-04 23:30 | disposition home or self-care (01) ==
LOC: ER 20:03
PROVIDERS: Emergency Medicine
DX: J06.9 Acute upper respiratory infection, unspecified (principal); I48.91 Unspecified atrial fibrillation; I25.10 Atherosclerotic heart disease of native coronary artery without angina pectoris; I50.9 Heart failure, unspecified; J44.9 Chronic obstructive pulmonary disease, unspecified; E11.40 Type 2 diabetes mellitus with diabetic neuropathy, unspecified; I25.2 Old myocardial infarction; Z98.61 Coronary angioplasty status; Z90.49 Acquired absence of other specified parts of digestive tract; Z86.73 Personal history of transient ischemic attack (TIA), and cerebral infarction without residual deficits; Z95.810 Presence of automatic (implantable) cardiac defibrillator; Z79.899 Other long term (current) drug therapy; Z79.4 Long term (current) use of insulin; Z79.01 Long term (current) use of anticoagulants; Z87.891 Personal history of nicotine dependence

== ENCOUNTER → 2020-02-15 | Outpatient (CLI) | payer OTHER ==
[~2020-02-15] MED LIST changes: +ARTIFICIAL TEAR1510 OPHTHALMIC; +DOXYCYCLINE 10100 MG PO; +FLONASE 0.05%50 MCG NARES; +HAWTHORN BERRY500 MG PO; +LOVASA PO; +NOVOLOG FL100 UNIT/M SUBQ; +PANTOPRAZOLE SO40 M1 PO; +TRADJENTA5 MG
== END ==
LOC: RAD 10:50
DX: J43.9 Emphysema, unspecified (principal); J84.10 Pulmonary fibrosis, unspecified; I25.5 Ischemic cardiomyopathy; Z98.890 Other specified postprocedural states

== ENCOUNTER → 2020-07-30 | Outpatient (CLI) | payer OTHER ==
[2020-07-30 11:34] LABS: ALBUMIN 3.1 g/dL (3.4-5.0); DIRECT BILIRUBIN 0.2 mg/dL (<0.1-0.2); TOTAL BILIRUBIN 0.7 mg/dL (0.2-1.0); TOTAL PROTEIN 6.1 g/dL (6.4-8.2)
== END ==
LOC: RAD 10:17
PROVIDERS: ATTEND Nurse Practitioner
DX: Z79.899 Other long term (current) drug therapy (principal)